=== PATIENT | female | born 1955 | race Caucasian/White ===

== ENCOUNTER 2016-07-20 17:11 | Emergency (ER) | payer SELFPAY ==
[~2016-07-20] VITALS: Ht 162.6 cm; Wt 75.1 kg
[2016-07-20 17:25] VITALS: BP 193/107; PULSE 97; RESP 16; TEMP 98.9; O2SAT 98
--- NOTE | 2016-07-20 18:03 | PD ---
HPI Chief Complaint: Oral / Dental Pain or Problem Time Seen by Provider: 17:57 Travel History International Travel<30 days: No Contact w/Intl Traveler<30days: No Traveled to known affect area: No History of Present Illness HPI Patient is a 60-year-old female presenting with left-sided facial swelling. She states that she has had this happen to her multiple times in the past and usually last less than one day, resolves with massage and application of ice or heat. It has not resolved this time has gotten larger over the last 2 days. She states she's had an occasional puckering and tingling sensation in the mouth like when you chew on a sour candy. She denies dry mouth. She denies sore throat or difficulty swallowing or breathing. She denies neck stiffness or neck pain. She denies any fever, chills, nausea, vomiting, abdominal pain, lymphadenopathy. No recent travel. PFSH Past Medical History Headaches: Yes (WITH VOMITING PER PT-NEVER EVALUATED FOR) Immunizations Current: Yes Tetanus Vaccination: > 5 Years Tubal Ligation: Yes Past Surgical History Genitourinary Surgery: Yes (BLADDER SLING WITH MESH) Other Surgery: Yes (FATTY CYSTS REMOVE LEFT SHOULDER, RIGHT KNEE AND GROIN AREA.) Social History Alcohol Use: Yes (VERY RARE) Tobacco Use: No (FORMER) Substance Use: No Allergies-Medications (Allergen,Severity, Reaction): Coded Allergies: No Known Allergies (Unverified , 07/20/16) Reported Meds & Prescriptions Reported Meds & Active Scripts Active No Active Prescriptions or Reported Medications Review of Systems Except as stated in HPI: all other systems reviewed are Neg Physical Exam Narrative GENERAL: Well-developed and well-nourished adult female in no acute distress. SKIN: Warm and dry. Good turgor without tenting. HEAD: Normocephalic and atraumatic. EYES: PERRL bilaterally, 5mm. EOMI bilaterally. No injection or icterus present. No proptosis. Lids without edema or erythema. ENT: Bilateral ear canals are non-edematous/non-erythematous without otorrhea. Bilateral TMs have intact landmarks and without distortion, perforation, air- fluid level or erythema. Nasal mucosa pink and moist without discharge, septum intact and midline. Buccal mucosa pink and moist. No clear sialolith. Oropharynx free of erythema, tonsillar hypertrophy, masses, swelling, asymmetry and exudates. Uvula midline and airway patent. NECK: Palpation of the left parotid gland reveals mild edema and mild tenderness. There is no erythema or warmth. This does not extend below the angle of the mandible. No masses or induration palpated below the mandible. Supple, no meningeal signs. Trachea midline, no JVD. No cervical or facial lymphadenopathy. CARDIOVASCULAR: Regular rate and rhythm without murmurs, rubs, clicks or gallops. Radial and posterior tibial pulses 2+ bilaterally. No pedal edema. RESPIRATORY: Clear to auscultation bilaterally with symmetrical rise and fall, no distress or use of accessory muscles. GASTROINTESTINAL: Non-tender, non-distended. Normal bowel sounds all 4 quadrants. No masses or organomegaly present. MUSCULOSKELETAL: No gait disturbances. Patient freely moving all four extremities spontaneously. Extremities without clubbing, cyanosis, or edema. No obvious deformities. NEUROLOGIC: CN II-XII grossly intact. Awake and alert. Motor grossly within normal limits. Normal speech. PSYCHIATRIC: Appropriate mood and affect; insight and judgment normal. Data Data Last Documented VS Vital Signs Date Time Temp Pulse Resp B/P Pulse Ox O2 Delivery O2 Flow Rate FiO2 07/20/16 17:25 98.9 97 16 193/107 98 Orders Basic Metabolic Panel (Bmp) (07/20/16 17:56) Complete Blood Count With Diff (07/20/16 17:56) Ct Soft Tiss Neck W Iv Cont (07/20/16 ) Ketorolac Inj (Toradol Inj) (07/20/16 18:15) MDM Medical Decision Making Medical Screen Exam Complete: Yes Emergency Medical Condition: Yes Differential Diagnosis Clog salivary gland versus parotitis versus mumps versus abscess unlikely Narrative Course Patient is a 50-year-old female is afebrile, nontoxic and has no systemic complaints with history and physical suggestive of parotid gland swelling secondary to Stensen duct obstruction. No clear sialolith. No signs of infection. No oropharyngeal symptoms or evidence of airway compromise. Conferred with Dr. Espana saw this patient and agrees. At this time we'll treat with NSAIDs, warm compresses, massage and use of sour candies to help facilitate resolution. Patient was instructed to return if she develops fever or acute worsening or redness or any oropharyngeal symptoms. Initially her blood pressure was elevated today and she has no neurologic or cardiopulmonary symptoms so will not treat this emergently. Recommend she follow-up with PCP for repeat eval and management.See discharge paperwork for further instructions. The plan was discussed with the patient who acknowledged their understanding and agreement. Reinforced the follow-up with primary care is critically important. Patient instructed on emergent conditions that should prompt return to ED. Diagnosis Primary Impression: Parotid duct obstruction Additional Impression: Elevated blood pressure reading Patient Instructions: General Instructions, Sialoadenitis (ED) Additional Instructions: Take medications as prescribed Frequent warm compresses and massage to help resolve the obstruction and drain the gland Use of sour candies and manages to promote salivation Follow-up with PCP in one to 2 days for recheck and to have blood pressure evaluated Return to the ED for any acute worsening of symptoms, difficulty swallowing, breathing, fever or redness around the gland Med/Other Pt SpecificInfo: Prescription(s) given Scripts Naproxen 500 Mg [id number] Mg PO BID #10 TAB Prov:Aren Espana MD 07/20/16 Disposition: 01 DISCHARGE HOME Condition: Stable Francisco Whipple III Jul 20, 2016 18:03
[2016-07-20] MEDS ORDERED: NAPR500T PO (18:04)
[2016-07-20 18:14] VITALS: BP 195/95
[2016-07-20] MEDS ORDERED: KETOROLAC TROMETHAMINE 60 MG/2 ML (IM) VIAL IM ONE (18:15)
== END 2016-07-20 18:22 | disposition home or self-care (01) ==
LOC: PHEFT 17:11
DX: K11.8 Other diseases of salivary glands (principal); R03.0 Elevated blood-pressure reading, without diagnosis of hypertension
CPT/HCPCS: 96372; 99283; J1885

== ENCOUNTER 2016-07-22 15:19 | Emergency (ER) | payer SELFPAY ==
[~2016-07-22] VITALS: Ht 162.6 cm; Wt 74.7 kg
[~2016-07-22 15:19] MED LIST: NAPR500T PO
[2016-07-22 15:22] VITALS: BP 175/93; PULSE 96; RESP 18; TEMP 99.1; O2SAT 98
[2016-07-22] MEDS ORDERED: CLINDAMYCIN PHOS 600 MG/4 ML VIAL IM ONE (15:45)
[2016-07-22] MEDS ORDERED: AUGM875T PO (15:46)
[2016-07-22] MEDS ORDERED: PERC5TAB12 PO (15:46)
--- NOTE | 2016-07-22 16:01 | PD ---
HPI Chief Complaint: Lump, Cyst, Hernia Time Seen by Provider: 15:34 Travel History International Travel<30 days: No Contact w/Intl Traveler<30days: No Traveled to known affect area: No History of Present Illness HPI This patient complains of swelling on the left side of her face. She was seen here few days ago and was diagnosed as a parotid duct stone. She tried some anti-inflammatories without relief. She denies fever. However she returns because the swelling has enlarged and the left side of her face. She is able to talk and speak and swallow and breathe fine. Symptoms severity is moderate. PFSH Past Medical History Cardiovascular Problems: Yes (HTN ) Headaches: Yes (WITH VOMITING PER PT-NEVER EVALUATED FOR) Respiratory: Yes (ASTHMA) Immunizations Current: Yes ?: Not Tubal Ligation: Yes Past Surgical History Genitourinary Surgery: Yes (BLADDER SLING WITH MESH) Other Surgery: Yes (FATTY CYSTS REMOVE LEFT SHOULDER, RIGHT KNEE AND GROIN AREA.) Social History Alcohol Use: Yes (VERY RARE) Tobacco Use: No (FORMER) Substance Use: No Allergies-Medications (Allergen,Severity, Reaction): Coded Allergies: No Known Allergies (Unverified , 07/22/16) Reported Meds & Prescriptions Reported Meds & Active Scripts Active Percocet (Oxycodone-Acetaminophen) 5-325 mg Tab 1 Tab PO Q6H PRN Augmentin (Amoxicillin-Clavulanate) 875-125 mg Tab 875 Mg PO BID not for use in CrCl <30 ml/min. Review of Systems General / Constitutional: No: Fever HENT: No: Headaches Cardiovascular: No: Chest Pain or Discomfort Physical Exam Narrative NECK: Symmetrical appearance, midline trachea. No mass or crepitus. Thyroid without enlargement, tenderness, or mass. Throat clear TMs normal SKIN: Inspection shows no rash or ulcers. Palpation shows no induration or nodules. Face: Patient has some swelling over the left cheek. It is tender. There is no fluctuance or drainage. There is scant erythema and no warmth. It feels indurated. Data Data Last Documented VS Vital Signs Date Time Temp Pulse Resp B/P Pulse Ox O2 Delivery O2 Flow Rate FiO2 07/22/16 15:22 99.1 96 18 175/93 98 Orders Clindamycin Inj (Cleocin Inj) (07/22/16 15:45) [facility] Medical Decision Making Medical Screen Exam Complete: Yes Emergency Medical Condition: Yes Medical Record Reviewed: Yes Differential Diagnosis Parotitis, abscess, duct stone Narrative Course I have reviewed the patient's electronic medical record. Reviewed her visit here from a few days ago. I think her presentation is more consistent with parotitis than a duct stone. There is nothing fluctuant or draining. Nothing seems amenable to incision and drainage or culture at this time. It has worsened since last time some going to give her injection of clindamycin as well as course of Augmentin and something for pain. Recommend warm compresses. I recommended a 48-hour recheck given it is a long holiday weekend. She will come back on Sunday for evaluation unless it is significantly improved. This way we will recheck it. I don't think CT scan at this time would tell us much but that may be needed if this worsens. Diagnosis Primary Impression: Parotitis, acute Additional Instructions: The patient was advised to follow up with their physician and return if they worsen. Recommending maxillofacial physician follow-up Recheck in 48 hours Med/Other Pt SpecificInfo: Prescription(s) given Scripts Oxycodone-Acetaminophen (Percocet)5-325 mg Tab1 Tab PO Q6H PRN (PAIN) #20 TAB Ref 0 Prov:Jovanni Martinez MD 07/22/16 Amoxicillin-Clavulanate (Augmentin)875-125 mg [id number] Mg PO BID #20 TAB Ref 0 not for use in CrCl <30 ml/min. Prov:Jovanni Martinez MD 07/22/16 Disposition: 01 DISCHARGE HOME Condition: Stable Jovanni Martinez MD Jul 22, 2016 16:01
== END 2016-07-22 16:29 | disposition home or self-care (01) ==
LOC: PHED 15:19
DX: K11.20 Sialoadenitis, unspecified (principal)
CPT/HCPCS: 96372

== ENCOUNTER 2016-07-26 15:07 | Emergency (ER) | payer SELFPAY ==
[~2016-07-26] VITALS: Ht 162.6 cm; Wt 74.5 kg
[~2016-07-26 15:07] MED LIST changes: +AUGM875T PO; -NAPR500T PO; +PERC5TAB12 PO
[2016-07-26 15:10] VITALS: BP 188/108; PULSE 84; RESP 17; TEMP 98.7; O2SAT 98
[2016-07-26] MEDS ORDERED: SODIUM CHLORIDE 0.9% FLUSH 5 ML FLUSH IVF PRN (18:30)
--- NOTE | 2016-07-26 18:33 | PD ---
HPI Chief Complaint: Edema Time Seen by Provider: 18:24 Travel History International Travel<30 days: No Contact w/Intl Traveler<30days: No Traveled to known affect area: No History of Present Illness HPI 60-year-old female here for evaluation of left cheek pain and swelling. This is the patient's third visit in the last week for the same. She was diagnosed with parotitis on physical exam and was started on Augmentin 4 days ago. She states that the pain and swelling has not improved. She has been trying to suck on lemon drops, and states that after she does so and after she eats the inflammation appears to increase. She is able to swallow and tolerate her secretions. No fevers or chills. All of her immunizations are up-to-date. PFSH Past Medical History Cardiovascular Problems: Yes (HTN ) Headaches: Yes (WITH VOMITING PER PT-NEVER EVALUATED FOR) Respiratory: Yes (ASTHMA) Immunizations Current: Yes Tubal Ligation: Yes Past Surgical History Genitourinary Surgery: Yes (BLADDER SLING WITH MESH) Other Surgery: Yes (FATTY CYSTS REMOVE LEFT SHOULDER, RIGHT KNEE AND GROIN AREA.) Social History Alcohol Use: Yes (VERY RARE) Tobacco Use: No (FORMER) Substance Use: No Allergies-Medications (Allergen,Severity, Reaction): Coded Allergies: No Known Allergies (Unverified , 07/26/16) Reported Meds & Prescriptions Reported Meds & Active Scripts Active Percocet (Oxycodone-Acetaminophen) 5-325 mg Tab 1 Tab PO Q6H PRN Augmentin (Amoxicillin-Clavulanate) 875-125 mg Tab 875 Mg PO BID not for use in CrCl <30 ml/min. Reported Naproxen 500 Mg Tab 500 Mg PO BID Review of Systems Except as stated in HPI: all other systems reviewed are Neg Physical Exam Narrative GENERAL: Pleasant, well-developed, well-nourished, comfortable, no acute distress. SKIN: Warm and dry. HEAD: Atraumatic. Normocephalic. EYES: Pupils equal and round. No scleral icterus. No injection or drainage. ENT: No nasal bleeding or discharge. Mucous membranes pink and moist. No drooling or stridor. Tolerating secretions. Left preauricular area with moderate sized firm mass which is tender. NECK: Trachea midline. No JVD. No nuchal rigidity. CARDIOVASCULAR: Regular rate and rhythm. RESPIRATORY: No accessory muscle use. Clear to auscultation. Breath sounds equal bilaterally. NEUROLOGICAL: Awake and alert. No obvious cranial nerve deficits. Motor grossly within normal limits. Normal speech. PSYCHIATRIC: Appropriate mood and affect; insight and judgment normal. Data Data Last Documented VS Vital Signs Date Time Temp Pulse Resp B/P Pulse Ox O2 Delivery O2 Flow Rate FiO2 07/26/16 19:37 76 18 07/26/16 19:00 178/77 97 Room Air 07/26/16 15:10 98.7 Orders Basic Metabolic Panel (Bmp) (07/26/16 18:29) Complete Blood Count With Diff (07/26/16 18:29) Prothrombin Time / Inr (Pt) (07/26/16 18:29) Act Partial Throm Time (Ptt) (07/26/16 18:29) Sodium Chloride 0.9% Flush (Ns Flush) (07/26/16 18:30) Ct Facial Bones W Iv Contrast (07/26/16 ) Iohexol 350 Inj (Omnipaque 350 Inj) (07/26/16 20:04) Methylprednisolone So Succ Inj (Solumedr (07/26/16 20:45) Labs Laboratory Tests Test 07/26/16 19:10 White Blood Count 7.4 TH/MM3 Red Blood Count 4.53 MIL/MM3 Hemoglobin 13.0 GM/DL Hematocrit 38.0 % Mean Corpuscular Volume 84.0 FL Mean Corpuscular Hemoglobin 28.8 PG Mean Corpuscular Hemoglobin 34.2 % Concent Red Cell Distribution Width 12.7 % Platelet Count 252 TH/MM3 Mean Platelet Volume 8.1 FL Neutrophils (%) (Auto) 68.2 % Lymphocytes (%) (Auto) 23.9 % Monocytes (%) (Auto) 6.1 % Eosinophils (%) (Auto) 1.5 % Basophils (%) (Auto) 0.3 % Neutrophils # (Auto) 5.1 TH/MM3 Lymphocytes # (Auto) 1.8 TH/MM3 Monocytes # (Auto) 0.4 TH/MM3 Eosinophils # (Auto) 0.1 TH/MM3 Basophils # (Auto) 0.0 TH/MM3 CBC Comment DIFF FINAL Differential Comment Prothrombin Time 10.6 SEC Prothromb Time International 1.0 RATIO Ratio Activated Partial 27.8 SEC Thromboplast Time Sodium Level 143 MEQ/L Potassium Level 3.8 MEQ/L Chloride Level 104 MEQ/L Carbon Dioxide Level 29.0 MEQ/L Anion Gap 10 MEQ/L Blood Urea Nitrogen 12 MG/DL Creatinine 0.69 MG/DL Estimat Glomerular Filtration 87 ML/MIN Rate Random Glucose 99 MG/DL Calcium Level 9.2 MG/DL [facility] Medical Decision Making Medical Screen Exam Complete: Yes Emergency Medical Condition: Yes Medical Record Reviewed: Yes Differential Diagnosis Parotitis, sialolithiasis, parotid abscess, mass Narrative Course Vital signs reviewed. CBC is unremarkable. BMP is unremarkable. CT facial bones: CONCLUSION: Obstructing salivary gland stone anteriorly along the left cheek. There is also a 5 mm calculus along the left parotid gland. There is inflammation of the left parotid gland. Case discussed with on-call ENT Dr. Hamilton who recommends starting the patient on steroids. He agrees with Augmentin which the patient has been on for the last 4 days. He is more than happy to follow up with the patient in his office , however he also recommends giving the patient information to a facial surgeon to follow-up with. Patient was made aware of all findings and of plan. She was informed on when to return to the emergency department. She verbalizes understanding and agreement with plan. Diagnosis Primary Impression: Parotid duct obstruction Referrals: Ramon Hamilton MD 1 week ENT Bart Encarnacion DDS 1 week Facial surgeon Additional Instructions: Continue taking Augmentin as prescribed. Take prednisone as prescribed. Follow-up with ENT Dr. Hamilton this week. Follow-up with facial surgeon Dr. Encarnacion. Return to the emergency room if worsening symptoms or any other concerns as discussed. Scripts Prednisone 50 Mg Tab50 Mg PO DAILY 5 Days Ref 0 Prov:Jeff Thomas MD 07/26/16 Disposition: 01 DISCHARGE HOME Condition: Stable Jeff Thomas MD Jul 26, 2016 18:32
[2016-07-26] MEDS ORDERED: NAPR500T PO (18:41)
[2016-07-26 19:00] VITALS: BP 178/77; PULSE 76; RESP 18; O2SAT 97
[2016-07-26 19:26] LABS: AUTOMATED NEUTROPHIL # 5.1 TH/MM3 (1.8-7.7); BASOPHIL % 0.3 % (0.0-2.0); EOSINOPHIL # 0.1 TH/MM3 (0-0.4); EOSINOPHIL % 1.5 % (0.0-4.0); HEMO FLAGS DIFF FINAL; LYMPH % 23.9 % (9.0-44.0); LYMPHOCYTE # 1.8 TH/MM3 (1.0-4.8); MEAN CORPUSCULAR HEMOGLOBIN 28.8 PG (27.0-34.0); MEAN CORPUSCULAR HGB CONC 34.2 % (32.0-36.0); MONO % 6.1 % (0.0-8.0); NEUT % 68.2 % (16.0-70.0); PLATELET COUNT 252 TH/MM3 (150-450); RED BLOOD COUNT 4.53 MIL/MM3 (4.00-5.30); RED CELL DISTRIBUTION WIDTH 12.7 % (11.6-17.2); WHITE BLOOD COUNT 7.4 TH/MM3 (4.0-11.0)
[2016-07-26 19:43] LABS: POTASSIUM 3.8 MEQ/L (3.5-5.1)
[2016-07-26 19:48] LABS: APTT (PATIENT) 27.8 SEC (24.3-30.1); PROTHROMBIN TIME - PATIENT 10.6 SEC (9.8-11.6)
[2016-07-26] MEDS ORDERED: IOHEXOL 350 MG/ML 10 ML VIAL (for RAD DIAG) IV ONE (20:04)
--- NOTE | 2016-07-26 20:21 | RADHPO ---
EXAM DATE/TIME: 07/26/2016 19:59 [facility] COMPARISON: No previous studies available for comparison. INDICATIONS : Left cheek and jaw swelling. Evaluate salivary glands. IV CONTRAST: 75 cc Omnipaque 350 (iohexol) IV RADIATION DOSE: 29.97 CTDIvol (mGy) MEDICAL HISTORY : Hypertension. SURGICAL HISTORY : None. ENCOUNTER: Initial ACUITY: 1 day PAIN SCALE: 6/10 LOCATION: Left facial TECHNIQUE: Volumetric scanning of the facial bones was performed. Using automated exposure control and adjustme nt of the mA and/or kV according to patient size, radiation dose was kept as low as reasonably achiev able to obtain optimal diagnostic quality images. FINDINGS: ORBITS: The orbital and infraorbital osseous structures are intact. The retroconal structures have a normal configuration. No radiopaque foreign bodies are seen. NASAL BONE: The nasal bone and maxillary spine are intact ZYGOMATIC ARCHES: Symmetric without evidence of fracture. SINUSES: The maxillary, ethmoid and frontal sinuses are intact. No air-fluid levels seen. NASAL CAVITY: The nasal septum is intact and midline. The lacrimal ducts are intact. SOFT TISSUES: No radiopaque foreign bodies seen. No soft-tissue swelling is seen. INTRACRANIAL: No intracranial air seen. CRIBIFORM PLATE: Grossly intact. OTHER: There is some prominence/inflammation of the left parotid gland. A 5 mm calculus is seen anteriorly m easuring 5 mm. There is also one anteriorly along the left cheek measuring 2 mm. CONCLUSION: Obstructing salivary gland stone anteriorly along the left cheek. There is also a 5 mm calculus along the left parotid gland. There is inflammation of the left parotid gland.. Booker Dodson MD on July 26, 2016 at 20:14 Board Certified Radiologist. This report was verified electronically.
[2016-07-26] MEDS ORDERED: PRED50 PO (20:42)
[2016-07-26] MEDS ORDERED: methylPREDNISolone SOD SUCC 125 MG/2 ML VIAL IV PUSH ONE (20:45)
[2016-07-26 21:00] VITALS: BP 162/96; PULSE 70; RESP 18; O2SAT 96
== END 2016-07-26 21:15 | disposition home or self-care (01) ==
LOC: PHED 15:07
DX: K11.5 Sialolithiasis (principal); I10 Essential (primary) hypertension
CPT/HCPCS: 70487; 80048; 85025; 85610; 85730; 96374; 99284; J2930; Q9967